=== PATIENT | male | born 1950 | race Hispanic/Latino ===

== ENCOUNTER 2021-04-14 06:53 | Day surgery (SDC) | payer OTHER ==
[2021-04-11 12:29] LABS: BASOPHILS % (AUTO) 1.6 % (0.0-5.0); EOSINOPHILS % (AUTO) 2.4 % (0.0-8.0); HEMATOCRIT 42.1 % (42-54); LYMPHOCYTES % (AUTO) 29.4 % (21.0-51.0); MEAN CORPUSCULAR HEMOGLOBIN 30.1 pg (27.0-33.0); MEAN CORPUSCULAR HGB CONC 32.3 g/dL (32.0-36.0); MEAN CORPUSCULAR VOLUME 93.1 fL (79-99); MONOCYTES % (AUTO) 9.2 % (3.0-13.0); PLATELET COUNT (AUTO) 366 K/uL (130-400); RED BLOOD CELL COUNT(AUTO) 4.52 MIL/uL (4.50-6.20); RED CELL DISTRIBUTION WIDTH 13.7 % (11.0-15.5); WHITE BLOOD COUNT (AUTO) 10.4 K/uL (4.8-10.8)
[2021-04-11 12:38] LABS: CREATININE 0.8 mg/dL (0.5-1.5); POTASSIUM 4.1 mmol/L (3.5-5.1)
[2021-04-12 14:14] VITALS: BP 133/68
[~2021-04-14] VITALS: Ht 181.6 cm; Wt 101.9 kg
[2021-04-14] VITALS (14 sets, daily range): BP systolic 110–167; BP diastolic 61–88
[~2021-04-14 06:53] MED LIST: ASPI-1022 PO; CEFTRIAXONE 1G VIAL IVP SCH; FINASTERIDE PO; TAMS-1 PO
[2021-04-14] MEDS ORDERED: LACTATED RINGERS 1000ML 1,000 ML IV ONE (07:35)
[2021-04-14] MEDS ORDERED: LIDOCAINE PF 100MG/5ML (2%) SYRINGE 5ML ONE (08:02)
[2021-04-14] MEDS ORDERED: FENTANYL CITRATE PF 50 MCG/1 ML 2ML VIAL ONE (08:02)
[2021-04-14] MEDS ORDERED: PROPOFOL 10 MG/ML 20ML VIAL IV ONE (08:02)
[2021-04-14] MEDS ORDERED: GLYCOPYRROLATE 1 MG/5 ML SYRINGE ONE (09:25)
[2021-04-14] MEDS ORDERED: EPHEDRINE SULFATE 50 MG/ML AMPULE ONE (09:34)
[2021-04-14] MEDS ORDERED: OPIUM/BELLADONNA ALKALOIDS 1 EACH SUPP.RECT RC ONE (10:07)
[2021-04-14] MEDS ORDERED: PHENAZOPYRIDINE HCL 200 MG TABLET ONE (10:47)
[2021-04-14] MEDS ORDERED: HYDRALAZINE 20MG/ML VIAL ONE (11:13)
== END 2021-04-14 12:10 | disposition home or self-care (01) ==
LOC: DAH 06:53
PROVIDERS: ATTEND Urology
DX: N40.1 Benign prostatic hyperplasia with lower urinary tract symptoms (principal); Z20.822 Contact with and (suspected) exposure to COVID-19; R39.14 Feeling of incomplete bladder emptying; N32.89 Other specified disorders of bladder; R35.1 Nocturia; I10 Essential (primary) hypertension; K21.9 Gastro-esophageal reflux disease without esophagitis; E11.9 Type 2 diabetes mellitus without complications; I69.352 Hemiplegia and hemiparesis following cerebral infarction affecting left dominant side; Z87.891 Personal history of nicotine dependence; Z79.899 Other long term (current) drug therapy; Z98.890 Other specified postprocedural states
CPT/HCPCS: 36415; 52648; 80048; 85025; 87635; 93005; A4215; A4221; A4222; A4223; A4340; A4354; A4358 ×2; A4510; A4600; A5113; C9803; J0360; J0696; J2001; J2704; J3010; J3490 ×2; J7120 ×2

== ENCOUNTER → 2021-09-18 | Outpatient (CLI) | payer OTHER ==
[~2021-09-18] MED LIST changes: -ASPI-1022 PO; -CEFTRIAXONE 1G VIAL IVP SCH
== END | disposition home or self-care (01) ==
LOC: RAH 13:08
PROVIDERS: ATTEND Urology
DX: N28.1 Cyst of kidney, acquired (principal); N32.89 Other specified disorders of bladder; N20.0 Calculus of kidney
CPT/HCPCS: 76770